=== PATIENT | male | born 1965 | race Caucasian/White ===

== ENCOUNTER 2016-05-08 13:09 | Emergency (ER) | payer MEDICAID ==
[~2016-05-08] VITALS: Ht 172.7 cm; Wt 77.1 kg
[2016-05-08 13:20] VITALS: BP 96/40
[2016-05-08] MEDS ORDERED: ATROPINE SULFATE INJ 1 MG/ML VIAL IV ONE (18:56)
[2016-05-08] MEDS ORDERED: SODIUM BICARBONATE SYR 50 MEQ/50 ML DISP.SYRIN IV ONE (18:56)
[2016-05-08] MEDS ORDERED: EPINEPHRINE (1:10,000) SYRINGE 1 MG/10 ML DISP.SYRIN IVP ONE (18:56)
== END 2016-05-08 15:45 ==
LOC: EDBD 13:11 → ER 13:11
DX: I46.9 Cardiac arrest, cause unspecified (principal); T75.4XXA Electrocution, initial encounter; W86.8XXA Exposure to other electric current, initial encounter
CPT/HCPCS: 31500; 92950; 99291; J0171; J0461; J3490